=== PATIENT | female | born 1960 | race Caucasian/White ===

== ENCOUNTER 2023-01-21 10:18 | Outpatient (CLI) | payer OTHER, SELFPAY ==
[2023-01-21 21:48] LABS: Cholesterol* 217 mg/dL (90-199); HDL Cholesterol* 83 mg/dL (>=50); LDL Cholesterol Calculated 121 mg/dL (<100); Triglycerides* 63 mg/dL (40-149)
== END 2023-01-21 10:19 | disposition home or self-care (01) ==
PROVIDERS: PCP Family Medicine; Visit Provider Family Medicine
DX: Z01.818 Encounter for other preprocedural examination (principal); I49.9 Cardiac arrhythmia, unspecified; E04.1 Nontoxic single thyroid nodule
CPT/HCPCS: 80061; 84443

== ENCOUNTER 2024-01-13 18:30 | Outpatient (CLI) | payer OTHER, SELFPAY | END 2024-01-13 18:31 | disposition home or self-care (01) | PROVIDERS: PCP Family Medicine; Visit Provider Family Medicine | DX: E78.00 Pure hypercholesterolemia, unspecified (principal); E04.1 Nontoxic single thyroid nodule; R49.0 Dysphonia | CPT/HCPCS: 80048; 80061; 84443 ==

== ENCOUNTER 2024-01-31 14:28 | Outpatient (CLI) | payer OTHER, SELFPAY ==
--- NOTE | 2024-01-31 15:00 | CRLHL7_ITS ---
For Patients: As a result of the Century Cures Act, medical imaging exams and procedure reports are released immediately into your electronic medical record. You may view this report before your referring provider. If you have questions, please contact your health care provider. INDICATION: Raspy voice voice change per patient COMPARISON: none TECHNIQUE: Avery scale and color Doppler images were acquired of the thyroid gland. FINDINGS: The thyroid gland demonstrates normal uniform echogenicity and has a smooth outer contour. The right lobe measures 4.9 x 1.4 x 1.2 cm and the left lobe measures 3.8 x 1.1 x 0.9 cm in size. Isthmus measures 1.7 millimeters. Cystic nodule within the right thyroid lobe measures 3 x 2 x 2 millimeters. The color Doppler images demonstrate normal vascularity. There is no evidence of cervical lymphadenopathy or parathyroid mass. IMPRESSION: Unremarkable thyroid ultrasound. Dictated by Dusty Delatorre MD @ 01/31/2024 10:35:45 PM (Electronically Signed)
== END 2024-01-31 14:29 | disposition home or self-care (01) ==
LOC: US 14:29
PROVIDERS: PCP Family Medicine; Visit Provider Family Medicine
DX: R49.8 Other voice and resonance disorders (principal); E04.1 Nontoxic single thyroid nodule
CPT/HCPCS: 76536

== ENCOUNTER 2024-12-18 08:39 | Outpatient (CLI) | payer OTHER, SELFPAY | END 2024-12-18 08:40 | disposition home or self-care (01) | LOC: LKVREF 08:43 | PROVIDERS: PCP Family Medicine; Visit Provider Family Medicine | DX: E78.00 Pure hypercholesterolemia, unspecified (principal); M79.18 Myalgia, other site; Z79.899 Other long term (current) drug therapy | CPT/HCPCS: 80053 ==